=== PATIENT | female | born 1990 ===

== ENCOUNTER 2020-12-13 07:10 | Day surgery (SDC) | payer OTHER ==
[2020-12-13] MEDS ORDERED: PERCOCET 5-3251 EACH PO (14:07)
== END 2020-12-13 16:35 | disposition home or self-care (01) ==
LOC: CIR.AMB 07:10
PROVIDERS: ATTEND Surgery
DX: D34 Benign neoplasm of thyroid gland (principal); Z20.822 Contact with and (suspected) exposure to COVID-19